=== PATIENT | male | born 1945 | race Caucasian/White ===

== ENCOUNTER 2018-11-29 11:29 | Emergency (ER) | payer OTHER ==
--- NOTE | 2018-11-29 12:09 | EDPHY ---
General Time Seen by Provider: 11/29/18 11:39 Narrative: CLINICAL IMPRESSION: Left upper leg mass ASSESSMENT/PLAN: 73-year-old male presents to the emergency department with several months of a painless mass to the left upper inner thigh. On exam, there is no fluctuance, induration, cellulitis, but I can appreciate a firm fixed mass that is raised above the skin surface with discoloration to the surface of the skin. Ultrasound does not show drainable fluid collection or obvious abscess. I explained to the patient that I do not feel comfortable with incision and drainage nor do I feel comfortable removing this and I encouraged him to follow up with primary care. A referral was given. I also gave the name of a microbiology technologist. I have discussed the importance of follow-up given that I think he needs a biopsy to rule out skin cancer. Warning signs return to ED sooner discussed in discharge. DIFFERENTIAL DX: Differential includes but not limited to soft tissue mass, underlying abscess, epidermal inclusion cyst, skin cancer ED PROCEDURES: See lab and/or imaging results below ED COURSE: 1:00 p.m.: Ultrasound results discussed with Dr. Mclaughlin. No obvious abscess or fluid collection. This appears to be within the skin itself. Most likely amenable to biopsy and evaluation by Dermatology. CHIEF COMPLAINT: Left leg abscess HPI: 73-year-old male presents to the emergency department with complaints of 6 months of a swollen mass to the left upper leg. Patient reports he has not seen anybody for this. Initially he thought this was a pimple but reports that has grown in size since that time. His never drained anything. He reports no skin lesion or mold to the area prior to onset of swelling. No substantial pain , redness, warmth to the skin. He has not done anything for this aside from applying a topical herbal oil. PAST MEDICAL HISTORY: History of hepatitis and osteomyelitis See triage summary and nurse notes for addition applicable history REVIEW OF SYSTEMS: A full 10 point review of systems was negative except for those mentioned in HPI. PHYSICAL EXAM: General Appearance: Alert, oriented, appropriate, cooperative, NAD, well hydrated, non-toxic appearing, hypertensive no hypoxia. Skin: 1 cm, raised, nontender, nonfluctuant mass to the left upper inner leg. No surrounding erythema, warmth or lymphangitis. I cannot appreciate any fluctuance. There do appear to be teleangectasia versus vascular markings on the skin overlying the site. Multiple superficial scabbed abrasions noted. MEDICAL DECISION MAKING: Patient was seen independently. Secondary supervising physician at time of evaluation was: Dr. Salgado . Diagnosis: Skin lesion left upper leg. New, requires workup Summary: See Assessment and Plan for summary of ED visit Independent visualization of images, tracing, or specimens: Yes. Patient Progress: Stable for discharge. - Diagnostics Imaging Results: Imaging Impressions Extremity Ultrasound 11/29/18 11:52 Impression: Indeterminant likely solid dermal mass with no evidence of abscess or deep extension. Findings discussed with Ajay Castro 11/29/2018 at 13:04. - History Smoking Status: Current every day smoker - Objective Vital Signs: Initial Vital Signs Temperature (C) 36.9 C 11/29/18 11:33 Heart Rate 84 11/29/18 11:33 Respiratory Rate 16 11/29/18 11:33 Blood Pressure 161/100 H 11/29/18 11:33 O2 Sat (%) 96 11/29/18 11:33 O2 Delivery Mode Room Air Allergies/Adverse Reactions: No Known Allergies Allergy (Unverified 11/29/18 11:33) Home Medications: Medication Instructions Recorded Adderall 10 MG (*) 11/29/18 Departure - Departure Disposition: Home, Routine, Self-Care Clinical Impression: Skin lesion Condition: Good Instructions: Soft Tissue Mass (ED) Additional Instructions: DISCHARGE INSTRUCTIONS FROM YOUR DOCTOR Thank you for visiting our emergency department today. You were treated by a physician executive assistant to president today and your case was reviewed with our ED Attending physician. Please keep in mind that discharge from the emergency department does not mean that there is nothing wrong - it simply means that we have not identified an emergency condition that requires further evaluation or treatment in the hospital. You should always plan to follow up with primary care for re- evaluation of your condition in the next 2-3 days. If you have been referred to a specialist, please call as soon as possible (today or tomorrow) to schedule your follow up appointment at the appropriate time. ULTRASOUND OF THE LEG SHOWS NO OBVIOUS FLUID COLLECTION OR DRAINABLE ABSCESS. THE SWELLING SEEMS TO BE CONTAINED WITHIN THE SKIN AND I WOULD STRONGLY RECOMMEND THAT YOU SEE A STRAIGHT KNIFE CUTTER MACHINE FOR EVALUATION AND POSSIBLE BIOPSY. THIS MAY ALSO BE A PROCEDURE THAT HER PRIMARY CARE DOCTOR IS COMFORTABLE PERFORMING. I WOULD FOLLOW UP THIS WEEK. RETURN TO THE ED FOR SIGNIFICANT INCREASE IN PAIN, SWELLING, REDNESS, FEVERS, RED STREAKS GOING UP THE LEG OR ANY OTHER CONCERN. People present with illnesses and injuries in different ways, and it is always possible that we have missed something. You may always return for re-evaluation if symptoms worsen or if they are not improving or if you develop new/different symptoms. Again, thank you for choosing our emergency department. We hope that you feel better. Referrals: MARVA HUNT [Other] - 1-2 days without fail Sheree Wright MD [Medical Doctor] - As per Instructions Spencer Bernal MD [Medical Doctor] - As per Instructions
[2018-11-29 13:13] VITALS: BP 173/107
== END 2018-11-29 13:22 | disposition home or self-care (01) ==
DX: R22.42 Localized swelling, mass and lump, left lower limb (principal)